=== PATIENT | female | born 1980 | race Native Hawaiian/Other Pacific Islander ===

== ENCOUNTER 2019-02-24 09:59 | Outpatient (CLI) | payer BC | END 2019-02-24 20:13 | disposition home or self-care (01) | LOC: LABW 09:59 | DX: R19.7 Diarrhea, unspecified (principal) | CPT/HCPCS: 83630; 87015; 87045; 87324; 87328; 87329; 87449; 87899 ==

== ENCOUNTER 2019-03-18 11:02 | Outpatient (CLI) | payer OTHER | END 2019-03-18 19:29 | disposition home or self-care (01) | LOC: CT 11:02 | DX: R55 Syncope and collapse (principal) ==

== ENCOUNTER 2019-08-01 11:13 | Outpatient (CLI) | payer OTHER | END 2019-08-01 19:41 | disposition home or self-care (01) | LOC: MAMMO 11:13 | DX: N64.3 Galactorrhea not associated with childbirth (principal) ==